=== PATIENT | female | born 1960 | race Caucasian/White ===

== ENCOUNTER → 2018-05-09 | Outpatient (CLI) | payer BC ==
--- NOTE | 2018-05-09 13:45 | Diagnostic Imaging Report ---
INDICATION: Routine screening. COMPARISON: 06/28/2012. TECHNIQUE: 2D and 3D bilateral screening mammography was performed with CAD. FINDINGS: Both breasts are heterogeneously dense, limiting the sensitivity of mammography. The right breast is unremarkable. There is a density identified in the left breast superiorly at mid depth, best seen on the MLO tomographic view #33. Additional views are recommended. No correlate on the CC view is seen. No suspicious calcifications are identified. The axillae are unremarkable. IMPRESSION: Left breast density. Additional views including spot compression and ML views are recommended for further evaluation. ACR BI-RADS Category 0: Incomplete. (Needs additional imaging evaluation). Result letter will be mailed to the patient. Note: At least 10% of breast cancer is not imaged by mammography. Dictated by: Dictated on workstation # [id number]
== END ==
LOC: RAD 09:18
PROVIDERS: ATTEND Internal Medicine
DX: Z12.31 Encounter for screening mammogram for malignant neoplasm of breast (principal)
CPT/HCPCS: 77067

== ENCOUNTER → 2018-05-17 | Outpatient (CLI) | payer BC ==
--- NOTE | 2018-05-17 18:51 | Diagnostic Imaging Report ---
INDICATION: Abnormal mammogram. EXAMINATION: Ultrasound of the left breast. FINDINGS: The screening mammogram performed on 05/09/2018 noted a new density in the left breast, superiorly, at mid depth. The diagnostic mammogram performed earlier today failed to show any sign of malignancy in this area. On this exam, in the 10:30 position, 7 cm from the nipple, there is a small 0.5 x 0.5 x 0.6 cm septated hypoechoic avascular mass in this region. I suspect that this is either a septated cyst or two adjacent cysts. There is no internal vascularity associated with the septa between the cysts. This may correspond to the density seen on the mammogram. There were no solid lesions to suggest malignancy. IMPRESSION: There is a small septated cyst or two contiguous cysts in the midportion of the right breast. This finding has a generally benign appearance and this may well correspond to the density seen on the mammogram. I would recommend that a short-term (6 month) followup mammogram and ultrasound exam of the left breast be performed for continued evaluation. ACR BI-RADS Category 3: Probably benign findings. Result letter will be mailed to the patient. Note: At least 10% of breast cancer is not imaged by mammography. Dictated by: Dictated on workstation # [id number]
== END ==
LOC: RAD 13:22
PROVIDERS: ATTEND Internal Medicine
DX: R92.2 Inconclusive mammogram (principal)
CPT/HCPCS: 76642

== ENCOUNTER → 2018-11-15 | Outpatient (CLI) | payer BC ==
--- NOTE | 2018-11-15 19:41 | Diagnostic Imaging Report ---
INDICATION: Six-month followup left breast complex cyst. Correlation is made with prior left breast ultrasound from 05/17/2018 and diagnostic mammogram earlier today. FINDINGS: Sonographic interrogation of the 10:30 location left breast was performed. Previously noted complex cyst at this location 7 cm from the nipple is again noted, however the cyst appears to be simple on today's study. No internal debris or septations are identified on today's study. The cyst is slightly more elongated now measuring 11 mm x 4 mm x 5 mm compared with 6 mm x 5 mm x 4 mm. No internal vascularity is seen. No new mass is detected. IMPRESSION: Simple cyst 10:30 location of the left breast 7 cm from the nipple. This is slightly more elongated on today's study but does appear to be simple. Patient may return to bilateral screening mammography in 6 months. ACR BI-RADS Category 2: Benign findings. Dictated by: Dictated on workstation # [id number]
--- NOTE | 2018-11-15 20:59 | Diagnostic Imaging Report ---
INDICATION: Six-month followup left breast density. COMPARISON: Correlation is made with prior left mammogram from 05/09/2018 and 06/28/2012. EXAMINATION: Unilateral left 2D and 3D diagnostic mammography was performed. FINDINGS: The left breast remains heterogeneously dense. Nodular density in the upper central left breast on prior mammogram is not as well-seen on today's study. No new mass is identified. No suspicious calcifications are identified. Left axilla is unremarkable. IMPRESSION: The previously noted density in the central superior left breast is not as well-seen on today's study. Even so, sonographic interrogation of the left breast. ACR BI-RADS Category 0: Incomplete. (Needs additional imaging evaluation). Result letter will be mailed to the patient. Note: At least 10% of breast cancer is not imaged by mammography. Dictated by: Dictated on workstation # [id number]
== END ==
LOC: RAD 12:37
PROVIDERS: ATTEND Internal Medicine
DX: N60.02 Solitary cyst of left breast (principal); N63.20 Unspecified lump in the left breast, unspecified quadrant
CPT/HCPCS: 76642

== ENCOUNTER → 2019-05-23 | Outpatient (CLI) | payer BC ==
--- NOTE | 2019-05-23 18:32 | Diagnostic Imaging Report ---
INDICATION: Routine screening. COMPARISON: Prior mammograms from 05/09/2018 and 06/28/2012. EXAMINATION: 2D and 3D bilateral screening mammography was performed with CAD. The current study was also evaluated with a Computer Aided Detection (CAD) system. FINDINGS: Scattered fibroglandular densities are identified, bilaterally. The parenchymal pattern is stable. No mass or malignant appearing microcalcifications are seen. Axillae are unremarkable. IMPRESSION: No mammographic features suspicious for malignancy are identified. ACR BI-RADS Category 1: Negative. Result letter will be mailed to the patient. Note: At least 10% of breast cancer is not imaged by mammography. Dictated by: Dictated on workstation # [id number]
== END ==
LOC: RAD 10:06
PROVIDERS: ATTEND Internal Medicine
DX: Z12.31 Encounter for screening mammogram for malignant neoplasm of breast (principal)
CPT/HCPCS: 77067

== ENCOUNTER → 2019-08-28 | Outpatient (CLI) | payer BC ==
--- NOTE | 2019-08-28 11:29 | Diagnostic Imaging Report ---
PROCEDURE: US Non-ob pelvis comp/trans. TECHNIQUE: Multiple realtime grayscale images were obtained of the pelvis in various projections endovaginally. Transabdominal imaging was also performed. INDICATION: Postmenopausal bleeding. FINDINGS: The uterus measures 8.3 x 5.3 x 4.2 cm. The endometrial thickness is 6 mm. There are several fibroids, the largest measuring 2.7 cm and is in the fundus. Neither ovary was visualized. There are nabothian cysts. There are no adnexal masses. There is no free pelvic fluid. IMPRESSION: Fibroid uterus, otherwise unremarkable pelvic ultrasound. Dictated by: Dictated on workstation # [id number]
== END ==
LOC: RAD 10:14
PROVIDERS: ATTEND Obstetrics & Gynecology
DX: D25.9 Leiomyoma of uterus, unspecified (principal)
CPT/HCPCS: 76830; 76856

== ENCOUNTER → 2020-05-26 | Outpatient (CLI) | payer BC ==
--- NOTE | 2020-05-26 11:46 | Diagnostic Imaging Report ---
INDICATION: Routine screening. COMPARISON: 05/23/2019 and 05/09/2018. TECHNIQUE: 2D and 3D bilateral screening mammography was performed with CAD. FINDINGS: Both breasts are heterogeneously dense, limiting the sensitivity of mammography. No dominant mass or malignant appearing microcalcifications are seen. The axillae are unremarkable. IMPRESSION: No mammographic features suspicious for malignancy are identified. ACR BI-RADS Category 1: Negative. Result letter will be mailed to the patient. Note: At least 10% of breast cancer is not imaged by mammography. Dictated by: Dictated on workstation # [id number]
== END ==
LOC: RAD 10:30
PROVIDERS: ATTEND Internal Medicine
DX: Z12.31 Encounter for screening mammogram for malignant neoplasm of breast (principal)
CPT/HCPCS: 77063; 77067

== ENCOUNTER → 2021-07-02 | Outpatient (CLI) | payer BC ==
--- NOTE | 2021-07-02 15:46 | Diagnostic Imaging Report ---
INDICATION: Routine screening. COMPARISON is made with prior mammograms 05/26/2020 and 05/23/2019. 2-D and 3-D bilateral screening mammography was performed with CAD. Both breasts are heterogeneously dense, limiting the sensitivity of mammography. The parenchymal pattern is stable. No mass or malignant-appearing microcalcifications are seen. Axillae are unremarkable. IMPRESSION: BI-RADS Category 1 No mammographic features suspicious for malignancy are identified. ACR BI-RADS Category 1: Negative. Result letter will be mailed to the patient. Note: At least 10% of breast cancer is not imaged by mammography. Dictated by: Dictated on workstation # [id number]
== END ==
LOC: RAD 10:33
PROVIDERS: ATTEND Internal Medicine
DX: Z12.31 Encounter for screening mammogram for malignant neoplasm of breast (principal)
CPT/HCPCS: 77063; 77067

== ENCOUNTER → 2022-09-09 | Outpatient (CLI) | payer BC ==
--- NOTE | 2022-09-09 18:32 | Diagnostic Imaging Report ---
INDICATION: Routine screening. COMPARISON: Prior mammograms from 07/02/2021 and 05/26/2020. EXAMINATION: 2D and 3D bilateral screening mammography was performed with CAD. The current study was also evaluated with a Computer Aided Detection (CAD) system. FINDINGS: Both breasts are heterogeneously dense, limiting the sensitivity of mammography. Circumscribed nodule in the central right breast. This appears benign. No spiculated mass or malignant-appearing microcalcifications are seen. Axillae are unremarkable. IMPRESSION: No mammographic features suspicious for malignancy are identified. ACR BI-RADS Category 2: Benign findings. Result letter will be mailed to the patient. Note: At least 10% of breast cancer is not imaged by mammography. Dictated by: Dictated on workstation # [id number]
== END ==
LOC: RAD 10:30
PROVIDERS: ATTEND Internal Medicine
DX: Z12.31 Encounter for screening mammogram for malignant neoplasm of breast (principal)
CPT/HCPCS: 77063; 77067